=== PATIENT | male | born 2000 | race Caucasian/White ===

== ENCOUNTER 2021-12-09 18:37 | Emergency (ER) | payer OTHER ==
[2021-12-09 20:36] LABS: INFLUENZA A NAA NEGATIVE (NEGATIVE)
[2021-12-09 20:39] LABS: CORONAVIRUS 2019 SARS-COV-2 POSITIVE (NEGATIVE)
[2021-12-09 22:55] LABS: BASOPHIL 0.3 % (0-2); EOSINOPHIL 1.7 % (0-5); HCT 46.7 % (42.0-52.0); HGB 15.8 g/dl (13.2-18.0); LYMPHOCYTE 52.4 % (15-48); MCH 29.5 pg (25.0-31.0); MCHC 33.8 g/dL (32.0-36.0); MCV 87.1 fL (78.0-100.0); MONOCYTE 10.4 % (0-12); MPV 10.5 fL (6.0-9.5); NRBC 0; PLT 326 K/uL (150-400); RBC 5.36 M/uL (4.70-6.00); RDW 12.3 % (11.5-14.0); WBC 9.4 K/uL (4.0-10.5)
[2021-12-09 23:17] LABS: ALBUMIN 4.5 g/dL (3.4-5.0); BILIRUBIN - TOTAL 0.6 mg/dL (0.2-1.0); BUN/CREAT RATIO (CALC) 15.3 RATIO; CREATININE 0.72 mg/dL (0.67-1.17); POTASSIUM 4.3 mmol/L (3.5-5.1); TOTAL PROTEIN 8.5 g/dL (6.4-8.2)
[2021-12-09] MEDS ORDERED: ONDANSETRON ODT4 MG PO (23:49)
== END 2021-12-10 00:01 | disposition home or self-care (01) ==
LOC: FER 18:37
PROVIDERS: Emergency Medicine
DX: U07.1 COVID-19 (principal); Z88.0 Allergy status to penicillin
CPT/HCPCS: 36415; 71045; 80053; 84484; 85025; 85379; 93005; J1885; J2405; J7030; U0002

== ENCOUNTER → 2022-03-16 | Emergency (ER) | payer OTHER ==
[~2022-03-16] MED LIST: LIDOCAINE 2%30 ML TOP; ONDANSETRON ODT4 MG PO; PROCTOZONE-HC 230 GM TOP
== END | disposition home or self-care (01) ==
LOC: FER 15:13
DX: K60.2 Anal fissure, unspecified (principal); Z88.0 Allergy status to penicillin
CPT/HCPCS: 99283

== ENCOUNTER 2022-04-10 04:26 | Emergency (ER) | payer OTHER ==
[2022-04-10 04:49] LABS: BILIRUBIN 1+ mg/dL (NEGATIVE); BLOOD 3+ Ery/uL (NEGATIVE); CLARITY CLEAR (CLEAR); COLOR YELLOW (YELLOW); GLUCOSE (U) NORMAL (NORMAL); LEUKOCYTES NEGATIVE Leu/uL (NEGATIVE); NITRITE POSITIVE (NEGATIVE); PROTEIN 2+ mg/dL (NEGATIVE); SPECIFIC GRAVITY >=1.030 (1.001-1.030); pH 5.5 (5.0-9.0)
[2022-04-10 04:49] LABS: BASOPHIL 0.6 % (0-2); EOSINOPHIL 0 % (0-5); HCT 38.3 % (42.0-52.0); HGB 12.7 g/dl (13.2-18.0); LYMPHOCYTE 54.8 % (15-48); MCH 30.6 pg (25.0-31.0); MCHC 33.2 g/dL (32.0-36.0); MCV 92.3 fL (78.0-100.0); MONOCYTE 9.6 % (0-12); NRBC 0; PLT 376 K/uL (150-400); RBC 4.15 M/uL (4.70-6.00); RDW 14.6 % (11.5-14.0); WBC 11.5 K/uL (4.0-10.5)
[2022-04-10 04:50] LABS: NEUTROPHIL 34.7 % (41-80)
[2022-04-10 04:53] LABS: BACTERIA 3+; URINARY RBC TNTC; URINARY WBC TNTC
[2022-04-10 05:06] LABS: ALBUMIN 4.7 g/dL (3.4-5.0); BILIRUBIN - TOTAL 1.1 mg/dL (0.2-1.0); BUN/CREAT RATIO (CALC) 21.1 RATIO; CREATININE 0.9 mg/dL (0.67-1.17); GLOBULIN (CALCULATION) 3.7 g/dL; POTASSIUM 3.7 mmol/L (3.5-5.1); TOTAL PROTEIN 8.4 g/dL (6.4-8.2)
[2022-04-10 06:28] LABS: LACTIC ACID 0.9 mmol/L (0.4-1.9)
[2022-04-10] MEDS ORDERED: NAPROXEN500 MG PO (14:38)
[2022-04-10] MEDS ORDERED: AMOX TR-K CLV1 EAC4 PO (14:38)
[2022-04-10] MEDS ORDERED: ONDANSETRON ODT4 MG PO (14:38)
[2022-04-10] MEDS ORDERED: NORCO 5-325 TA1 EACH PO (14:38)
== END 2022-04-10 14:58 | disposition home or self-care (01) ==
LOC: FER 04:26
PROVIDERS: Internal Medicine
DX: N20.1 Calculus of ureter (principal); Z28.310 Unvaccinated for COVID-19; Z87.442 Personal history of urinary calculi; Z88.0 Allergy status to penicillin
CPT/HCPCS: 36415; 74018; 80053; 81001; 83605; 83690; 84145; 85025; 87040; 87088; J0692; J1170; J1885; J2405; J7030